=== PATIENT | male | born 1955 | race Caucasian/White ===

== ENCOUNTER 2023-01-01 13:46 | Day surgery (SDC) | payer OTHER, SELFPAY ==
--- NOTE | 2023-01-01 | PATH_ITS ---
[facility] Accession Number: [id number] No. of containers..01 Tissue . 01 Material submitted: . colon - DESCENDING POLYP . 01 Diagnosis: Descending Colon, Polyp: Tubular adenoma. [facility] 01/15/2023 0956 Local . 01 Electronically signed: . Pretty Cantrell MD, Pathologist NPI- [id number] . 01 Gross description: . DESCENDING POLYP: Received in formalin is 1 fragment(s) of mckee, soft tissue measuring 0.3 x 0.3 x 0.1 cm submitted entirely in 1 cassette(s) /DADA 01/02/2023 1842 Local . 01 Pathologist provided ICD-10: D12.4 . 01 CPT . 978667 Specimen Comment: A courtesy copy of this report has been sent to [phone] Performed at: 01 [facility] [address] [place] [address], [place], [place] [id number] MD Aung Evans MD Phone: [phone]
[2023-01-01 14:00] VITALS: BP 163/92; PULSE 92; RESP 16; TEMP 36.6; O2SAT 97; BMI 28.8
[2023-01-01] MEDS: LACTATED RINGERS 1,000 ML 150 ML IV (14:15)
--- NOTE | 2023-01-01 14:28 | PM.HP.1 ---
History of Present Illness History of Present Illness Date Patient Seen: 01/01/23 Time Patient Seen: 14:28 Chief complaint: Screening Colonoscopy Narrative: 67-year-old man personal history of colonic polyps here for screening colonoscopy. Last colonoscopy about 10 years ago notable for polyps. No family history of intestinal malignancy. No abdominal pain, unintentional weight loss blood per rectum. PFSH Social History household members: spouse Smoking Status: Former smoker alcohol intake: never Meds Home Medications and Allergies Home Medications Medication Instructions Recorded Confirmed Type albuterol sulfate 90 mcg/actuation 90 mcg inhalation PRN PRN 01/01/23 01/01/23 History aerosol inhaler difficulty breathing fluticasone 500 mcg-salmeterol 50 1 ea inhalation BID 01/01/23 01/01/23 History mcg/dose blistr powdr for inhalation (Advair Diskus) hydrochlorothiazide 25 mg tablet 25 mg PO DAILY 01/01/23 01/01/23 History lisinopril 5 mg tablet 5 mg PO DAILY 01/01/23 01/01/23 History Allergies Allergy/AdvReac Type Severity Reaction Status Date / Time No Known Drug Allergies Allergy Verified 01/01/23 14:15 Exam Vital Signs (past 8 hours): - 01/01/23 14:00 Temperature 98 F Pulse Rate 92 H Respiratory Rate 16 Blood Pressure 163/92 H Pulse Oximetry 97 Oxygen Delivery Method Room Air Oxygen Delivery Method Room Air Narrative Exam Narrative: General adult man alert oriented no acute distress Chest nonlabored respiration Extremities warm well perfused Assessment & Plan Assessment and plan (1) Personal history of colonic polyps: Status: Acute Assessment & Plan narrative: The patient requires colorectal screening and colonoscopy is recommended. Technical details were discussed. Risks, benefits, alternatives explained. Risks including but not limited to myocardial infarction, aspiration, bleeding, pain, missed lesion, incomplete examination, need for further radiographic studies, colonic perforation, and need for major abdominal surgery were discussed. All questions were answered to their satisfaction, and they are in agreement with this plan.
--- NOTE | 2023-01-01 14:59 | P.OP.COLON_ITS ---
Operative Date/Time/Diagnoses Date of procedure: 01/01/23 Time of procedure: 14:59 Pre-op diagnosis: Personal history of colonic polyps Post-op diagnosis: other (Colonic polyps x1) Procedure & Clinicians Study performed: Colonoscopy and polypectomy Same procedure as scheduled: Yes Indications: Personal history of colonic polyps Colorectal screening Surgeon: Josias Root Procedure Notes Procedure in detail: The history and physical was performed/updated and the patient is ASA class is 2. The procedure was discussed in detail with the patient. Potential risks complications including infection, bleeding, missed diagnosis, perforation, need for surgery, and were explained. Their questions were answered and informed consent was obtained. Patient was brought to the procedure room and placed standard monitoring equipment. The patient's vital signs were monitored continuously throughout the entire procedure. Prior to starting time-out was performed. The patient was placed in the left lateral recumbent position. Procedural sedation was administered by anesthesia. Examination began with a thorough inspection of the perianal area there was no evidence of fissures, fistulae, external hemorrhoids or cutaneous malignancy. The colonoscopy scope was then placed into the anal canal and was advanced to the cecum, which was identified by the ileocecal valve, the appendiceal orifice and the confluence of the taenia. The scope was then slowly withdrawn examining colon thoroughly in all directions, irrigating it of any residual stool. The scope was retroflexed within the rectum The patient tolerated the procedure well. They will be discharged once criteria are met. The prep was of good/excellent quality. The withdrawl time was 6 minutes. FINDINGS * Descending colonic polyp 3 mm removed with biopsy forceps * Sigmoid colon moderate diverticulosis * Internal hemorrhoids Specimen(s): other (Descending colonic polyp) Impression: Colonic polyp x1 Post-procedure Plan for aftercare: Follow-up is dependent on pathology findings Disposition: same day surgery
[2023-01-01 15:02] VITALS: BP 101/71; PULSE 77; RESP 16; TEMP 36.9; O2SAT 95
[2023-01-01 15:08] VITALS: BP 99/70; PULSE 79; RESP 12; O2SAT 95
[2023-01-01 15:12] VITALS: BP 108/69; PULSE 80; RESP 14; TEMP 36.6; O2SAT 95
[2023-01-01 15:15] VITALS: BP 106/73; PULSE 78; RESP 15; TEMP 36.6; O2SAT 94
== END 2023-01-01 15:30 | disposition home or self-care (01) ==
PROVIDERS: PCP Internal Medicine; Referring Provider Surgery; Visit Provider Surgery
PROC: 0DJD8ZZ Inspection of Lower Intestinal Tract, Via Natural or Artificial Opening Endoscopic (ICD-10-PCS; CPT 45378; principal; 2023-01-01 14:45)
DX: Z12.11 Encounter for screening for malignant neoplasm of colon (principal); K57.30 Diverticulosis of large intestine without perforation or abscess without bleeding; K64.8 Other hemorrhoids; D12.4 Benign neoplasm of descending colon
CPT/HCPCS: 45380; J2704